=== PATIENT | male | born 1995 | race Caucasian/White ===

== ENCOUNTER 2022-05-11 22:36 | Emergency (ER) | payer BC, MEDICAID ==
[2022-05-12] MEDS ORDERED: Acetaminophen 500 MG Tab PO STA (00:18)
[2022-05-12] MEDS ORDERED: Clindamycin HCl 150 MG Cap PO STA (00:56)
== END 2022-05-12 01:05 | disposition home or self-care (01) ==
LOC: MW.ED 22:36
DX: S02.85XA Fracture of orbit, unspecified, initial encounter for closed fracture (principal); S00.11XA Contusion of right eyelid and periocular area, initial encounter; Y09 Assault by unspecified means
CPT/HCPCS: 70486; 99284; A9270; 99283